=== PATIENT | female | born 1990 | race Caucasian/White ===

== ENCOUNTER → 2016-12-29 | Outpatient (CLI) | payer OTHER ==
[2016-12-29 18:29] LABS: BASO % 0.3 % (0.0-1.0); EOS # 0.2 K/mm3 (0.0-0.50); EOS % 2.8 % (0.0-3.0); LARGE UNSTAINED CELL # 0.1 K/mm3 (0.0-0.4); LARGE UNSTAINED CELL % 0.6 % (0.0-4.0); LYMPH # 1.7 K/mm3 (1.5-6.5); LYMPH % 18.3 % (24.0-44.0); MEAN CORPUSCULAR HEMOGLOBIN 31.9 pg (27.0-33.0); MEAN CORPUSCULAR HGB CONC 34.5 g/dl (32.0-36.5); MEAN CORPUSCULAR VOLUME 92.7 fl (80.0-96.0); MONO # 0.4 K/mm3 (0.0-0.8); MONO % 3.9 % (0.0-5.0); NEUTROPHILS # 6.6 K/mm3 (1.8-7.7); NEUTROPHILS % 74.1 % (36.0-66.0); PLATELET COUNT, AUTOMATED 289 k/mm3 (150-450); RED CELL DISTRIBUTION WIDTH 13.3 % (11.5-14.5); WHITE BLOOD COUNT 8.9 K/mm3 (4.0-10.0)
[2016-12-30 10:18] LABS: HBsAg Prenatal NEGATIVE (NEGATIVE)
[2016-12-30 10:26] LABS: CONTROL LINE INT CTR LINE PRESENT; HIV SCRN NEGATIVE (NEGATIVE); HIV SCRN1 NEGATIVE (NEGATIVE)
== END ==
LOC: M SMT 15:16
PROVIDERS: ATTEND Obstetrics & Gynecology
DX: Z34.81 Encounter for supervision of other normal pregnancy, first trimester (principal)

== ENCOUNTER → 2017-01-24 | Outpatient (CLI) | payer OTHER ==
--- NOTE | 2017-01-24 16:45 | REP ---
OB ULTRASOUND: Real-time sonographic evaluation of the gravid uterus is performed. There is a single living intrauterine gestation. The estimated gestational age is 19 weeks 3 days. EDC 06/17/2017. Today's measurements indicate appropriate growth. BPD 45 mm = 19 weeks 3 days, at the 51st percentile. HC 165 mm = 19 weeks 2 days, at the 45th percentile. AC 148 mm = 20 weeks 0 days, at the 64th percentile. Femur length 32 mm = 20 weeks 0 days, at the 67th percentile. HC/AC ratio 1.12 within normal range. Estimated weight 323 grams, 67th percentile. Cervix is closed and measures 4.2 cm in length. heart rate 141 beats per minute. SEEN/GROSSLY UNREMARKABLE Lateral ventricles Yes Posterior fossa Yes Upper lip Yes Four-chamber heart Yes LVOT Yes RVOT No Stomach Yes Cord insertion No Three vessel cord Yes Kidneys Yes Bladder No Spine Yes position: Vertex. Placenta: Posterior and low lying with no previa or abruption, grade 0. Placental tip appears to be 1.5 cm from the internal cervical os. Amniotic fluid appears within normal limits. There appears to be a nuchal cord. Signed by Jitendra Hoover MD 01/25/2017 08:34 A
== END ==
LOC: M SMT 14:45
PROVIDERS: ATTEND Advanced Practice Midwife
DX: Z34.82 Encounter for supervision of other normal pregnancy, second trimester (principal); Z3A.19 19 weeks gestation of pregnancy

== ENCOUNTER → 2017-02-13 | Outpatient (CLI) | payer OTHER ==
--- NOTE | 2017-02-14 04:08 | REP ---
Clinical: Anatomical evaluation. Comparison: 01/24/2017 . Findings: Examination demonstrates a single live intrauterine in breech presentation. motion is identified by technologist. Placenta is noted posteriorly and grade zero without evidence for placenta previa or abruption. Amniotic fluid volume is normal. Cervix measures 4.1 cm in length and appears closed. No evidence for nuchal cord. Gestational age by LMP 22 weeks 2 days with JOSÉ 06/17/2017 . Gestational age by current measurements 21 weeks 5 days with JOSÉ 06/21/2017 . FHR equals 136 beats per minute. Estimated weight 487 grams ( 43rd percentile). Anatomical assessment demonstrates normal structures including cranium, choroid plexus, cavum, cerebellum/posterior fossa, facial features, lungs, four-chamber heart/ventricular outflow tracts, diaphragm, stomach, cord insertion/three-vessel cord, kidneys/bladder, spine, and extremities. Impression: Single live intrauterine in breech presentation demonstrating appropriate interval growth. Anatomical assessment is complete and normal. Signed by Gibson Salgado MD 02/14/2017 04:00 A
== END ==
LOC: M SMT 13:46
PROVIDERS: ATTEND Advanced Practice Midwife
DX: Z34.82 Encounter for supervision of other normal pregnancy, second trimester (principal)

== ENCOUNTER → 2017-03-31 | Outpatient (CLI) | payer OTHER ==
[2017-03-31 13:00] LABS: BASO % 0.3 % (0.0-1.0); EOS # 0.1 K/mm3 (0.0-0.50); EOS % 1.1 % (0.0-3.0); LARGE UNSTAINED CELL # 0.1 K/mm3 (0.0-0.4); LARGE UNSTAINED CELL % 0.6 % (0.0-4.0); LYMPH # 1.4 K/mm3 (1.5-6.5); LYMPH % 14.5 % (24.0-44.0); MEAN CORPUSCULAR HEMOGLOBIN 32.5 pg (27.0-33.0); MEAN CORPUSCULAR HGB CONC 33.9 g/dl (32.0-36.5); MEAN CORPUSCULAR VOLUME 95.9 fl (80.0-96.0); MONO # 0.4 K/mm3 (0.0-0.8); MONO % 4.3 % (0.0-5.0); NEUTROPHILS # 7.1 K/mm3 (1.8-7.7); NEUTROPHILS % 79.2 % (36.0-66.0); PLATELET COUNT, AUTOMATED 246 k/mm3 (150-450); RED CELL DISTRIBUTION WIDTH 12.7 % (11.5-14.5); WHITE BLOOD COUNT 8.9 K/mm3 (4.0-10.0)
== END ==
LOC: M SMT 09:48
PROVIDERS: ATTEND Advanced Practice Midwife
DX: Z34.83 Encounter for supervision of other normal pregnancy, third trimester (principal)

== ENCOUNTER → 2017-05-18 | Outpatient (REF) | payer OTHER ==
[~2017-05-18] MED LIST: COLA100C5 PO; IBUP-1022 PO; OXYC1TAB23 PO; PRENTAB9 PO
== END ==
LOC: M LAB REF 16:47
PROVIDERS: ATTEND Obstetrics & Gynecology
DX: Z34.83 Encounter for supervision of other normal pregnancy, third trimester (principal); Z3A.00 Weeks of gestation of pregnancy not specified

== ENCOUNTER 2017-06-12 07:30 | Inpatient (IN) | payer OTHER ==
[~2017-06-12] VITALS: Ht 152.4 cm; Wt 65.0 kg
[2017-06-13] VITALS (7 sets, daily range): BP systolic 92–126; BP diastolic 50–65
[2017-06-13] MEDS ORDERED: LR 1,000 ML IV ONE (06:15)
[2017-06-13] MEDS ORDERED: LR 1,000 ML IV SCH ×2 (06:15→09:30)
[2017-06-13] MEDS ORDERED: BICITRA 30ML SOLN UDC PO ONE (06:15)
[2017-06-13 06:17] LABS: MEAN CORPUSCULAR HEMOGLOBIN 31.7 pg (27.0-33.0); MEAN CORPUSCULAR HGB CONC 34.3 g/dl (32.0-36.5); MEAN CORPUSCULAR VOLUME 92.5 fl (80.0-96.0); RED CELL DISTRIBUTION WIDTH 13.4 % (11.5-14.5); WHITE BLOOD COUNT 9.6 K/mm3 (4.0-10.0)
[2017-06-13] MEDS ORDERED: MORPHINE PRES-FREE INJ 10 MG/10 ML VIAL (J2274) As Ordered ONE (07:20)
[2017-06-13] MEDS ORDERED: OXYTOCIN INJ 10 UNITS/ML VIAL (J2590) As Ordered ONE ×2 (07:21→08:23)
[2017-06-13] MEDS ORDERED: PHENYLephrine HCL 500 MCG/5 ML (100MCG/ML) SYRINGE (J2370) As Ordered ONE ×2 (08:10→08:58)
[2017-06-13] MEDS ORDERED: ONDANSETRON 4MG/2ML VIAL (J2405) As Ordered ONE (08:23)
[2017-06-13] MEDS ORDERED: KETOROLAC 60 MG/2 ML VIAL (J1885) As Ordered ONE (08:23)
[2017-06-13] MEDS: PRENATAL VITAMINS CHEWABLE TABLET PO SCH (09:00)
[2017-06-13] MEDS ORDERED: MEASLES,MUMPS,RUBELLA VACCINE INJ (MMR-II) (90707) SC SCH (09:00)
[2017-06-13] MEDS ORDERED: RHOGAM 300 MCG (1500 IU) INJ (J2790) IM SCH (09:00)
[2017-06-13] MEDS ORDERED: OXYTOCIN DRIP 30 UNITS in APPROPRIATE DILUENT 1 EA IV SCH (09:00)
[2017-06-13] MEDS: KETOROLAC 30 MG/ML VIAL (J1885) IV SCH ×3 (09:00→20:52)
[2017-06-13] MEDS ORDERED: PERCOCET 5MG/325MG TAB PO PRN ×2 (09:00→09:30)
[2017-06-13] MEDS: LR 1,000 ML IV SCH ×2 (09:00→17:44)
[2017-06-13] MEDS ORDERED: PROMETHAZINE 25 MG TAB PO PRN (09:00)
[2017-06-13] MEDS: DOCUSATE SODIUM 100 MG CAP PO SCH ×2 (09:00→20:52)
[2017-06-13] MEDS ORDERED: ONDANSETRON 4MG/2ML VIAL (J2405) IV PRN ×2 (09:00→09:30)
[2017-06-13] MEDS ORDERED: NALBUPHINE HCL 10 MG/ML AMP (J2300) IV PRN (09:30)
[2017-06-13] MEDS ORDERED: fentaNYL 100 MCG/2 ML INJECTION (J3010) IV PRN (09:30)
[2017-06-13] MEDS ORDERED: HYDROmorphone HCL 1 MG/ML SYRINGE (J1170) IV PRN (09:30)
[2017-06-13] MEDS ORDERED: MEPERIDINE INJ 25 MG/ML VIAL (J2175) IV PRN (09:30)
[2017-06-13] MEDS ORDERED: METOCLOPRAMIDE INJ 10MG/2ML VIAL (J2765) IV PRN (09:30)
[2017-06-14] MEDS: KETOROLAC 30 MG/ML VIAL (J1885) IV SCH (02:46)
[2017-06-14 02:57] VITALS: BP 98/54
[2017-06-14 06:15] VITALS: BP 107/79
[2017-06-14 06:40] LABS: MEAN CORPUSCULAR HEMOGLOBIN 31.6 pg (27.0-33.0); MEAN CORPUSCULAR HGB CONC 33.8 g/dl (32.0-36.5); MEAN CORPUSCULAR VOLUME 93.6 fl (80.0-96.0); RED CELL DISTRIBUTION WIDTH 13.3 % (11.5-14.5); WHITE BLOOD COUNT 10.5 K/mm3 (4.0-10.0)
[2017-06-14] MEDS: PRENATAL VITAMINS CHEWABLE TABLET PO SCH (08:05)
[2017-06-14] MEDS: DOCUSATE SODIUM 100 MG CAP PO SCH ×2 (08:06→21:32)
[2017-06-14 09:58] VITALS: BP 111/66
[2017-06-14] MEDS: IBUPROFEN 800 MG TAB PO SCH ×2 (10:59→18:29)
[2017-06-14 14:20] VITALS: BP 98/57
[2017-06-14 18:10] VITALS: BP 97/51
[2017-06-14] MEDS: PERCOCET 5MG/325MG TAB PO PRN (18:34)
[2017-06-14 21:46] VITALS: BP 121/85
[2017-06-15] MEDS: PERCOCET 5MG/325MG TAB PO PRN ×2 (04:42→10:17)
[2017-06-15] MEDS: IBUPROFEN 800 MG TAB PO SCH (04:42)
[2017-06-15 05:43] VITALS: BP 113/63
[2017-06-15] MEDS ORDERED: OXYC1TAB23 PO (06:40)
[2017-06-15] MEDS ORDERED: COLA100C5 PO (06:41)
[2017-06-15] MEDS ORDERED: IBUP-1022 PO (06:41)
[2017-06-15] MEDS: PRENATAL VITAMINS CHEWABLE TABLET PO SCH (08:50)
[2017-06-15] MEDS: DOCUSATE SODIUM 100 MG CAP PO SCH (08:51)
[2017-06-15] MEDS ORDERED: PRENTAB9 PO (09:34)
== END 2017-06-15 11:00 | disposition home or self-care (01) | DRG 766 ==
LOC: M LDI 06-13 05:31 → EDUNIT# 06-13 07:30 → M OBS 06-13 10:43
PROVIDERS: ADMIT Obstetrics & Gynecology; ATTEND Obstetrics & Gynecology
PROC: 10D00Z1 Extraction of Products of Conception, Low, Open Approach (ICD-10-PCS; principal; 2017-06-13 07:30)
DX: O34.211 Maternal care for low transverse scar from previous cesarean delivery (principal); Z37.0 Single live birth; Z3A.39 39 weeks gestation of pregnancy; O34.03 Maternal care for unspecified congenital malformation of uterus, third trimester

== ENCOUNTER → 2019-05-01 | Outpatient (REF) | payer OTHER ==
[2019-05-04 00:07] LABS: HPV HYBRID CAPTURE II Negative (Negative)
== END ==
LOC: M LAB REF 18:26
PROVIDERS: ATTEND Advanced Practice Midwife
DX: Z12.4 Encounter for screening for malignant neoplasm of cervix (principal)
CPT/HCPCS: 87624; G0123

== ENCOUNTER → 2019-05-14 | Outpatient (REF) | payer OTHER ==
[2019-05-14 15:54] LABS: CHLAMYDIA DNA AMPLIFICATION NEGATIVE (NEGATIVE); GC DNA AMPLIFICATION NEGATIVE (NEGATIVE)
== END ==
LOC: M LAB REF 13:03
PROVIDERS: ATTEND Advanced Practice Midwife
DX: Z11.3 Encounter for screening for infections with a predominantly sexual mode of transmission (principal)

== ENCOUNTER → 2019-12-25 | Outpatient (CLI) | payer OTHER ==
--- NOTE | 2019-12-25 12:49 | REP ---
PELVIC SONOGRAPHY: HISTORY: IUD placement. Pelvic pain. Dyspareunia. No comparison study. FINDINGS: Transabdominal and transvaginal scanning are performed. A normal size retroverted retroflexed uterus is seen with overall dimensions of 5.8 x 2.7 x 3.6 cm. Endometrial echo 0.4 cm thick. The IUD is seen in good position in the endometrial canal. No focal uterine mass is seen. There is a small quantity of fluid in the cul-de-sac consistent with physiologic fluid. Normal ovaries are seen. Right ovarian dimensions are 3.8 x 2.2 x 3.1 cm. Left ovary measures 3.2 x 2.1 x 2.5 cm. Doppler flow is present in both ovaries. Resistive indices are 0.60 on the right and 0.52 on the left. IMPRESSION: Small quantity of cul-de-sac fluid consistent with physiologic fluid. IUD in good position and a retroverted retroflexed uterus. Normal ovaries.
== END ==
LOC: M WHC 09:47
PROVIDERS: ATTEND Nurse Practitioner Women's Health
DX: R10.2 Pelvic and perineal pain (principal); N94.10 Unspecified dyspareunia; Z30.431 Encounter for routine checking of intrauterine contraceptive device; N85.4 Malposition of uterus